=== PATIENT | male | born 1950 | race Caucasian/White ===

== ENCOUNTER → 2018-12-11 | Outpatient (CLI) | payer MEDICARE, BC ==
--- NOTE | 2018-12-11 10:15 | XR ---
EXAMINATION TYPE: XR ribs RT w pa chest xray DATE OF EXAM: 12/11/2018 CLINICAL HISTORY: Right rib pain TECHNIQUE: Single frontal view of the chest is obtained. 2 views of the right ribs were also obtained . COMPARISON: None FINDINGS: Right hemidiaphragm elevation is seen without priors for comparison to establish stability. There is no focal air space opacity, pleural effusion, or pneumothorax seen. The cardiac silhouette size is within normal limits. The osseous structures are intact. Mild multilevel degenerative arroyo ges of the thoracic spine are noted. IMPRESSION: 1. No acute cardiopulmonary process. 2. No acute right rib fracture or displaced healed fracture deformity. 3. Right hemidiaphragm elevation. No priors are available for comparison and therefore sniff test cou ld be performed to evaluate for diaphragmatic paralysis.
== END | disposition home or self-care (01) ==
LOC: RADXRMAIN 09:45
PROVIDERS: ATTEND Family Medicine
DX: J98.6 Disorders of diaphragm (principal); R07.81 Pleurodynia

== ENCOUNTER → 2019-03-16 | Outpatient (CLI) | payer MEDICARE ==
--- NOTE | 2019-03-16 14:56 | XR ---
EXAMINATION TYPE: XR cervical spine comp DATE OF EXAM: 03/16/2019 TECHNIQUE: Frontal, lateral, oblique, and open mouth view of the cervical spine are obtained. HISTORY: CERVICAL STENOSIS neck pain and numbness down both arms. COMPARISON: None FINDINGS: The cervical spine is visualized in its entirety from C1 thru the bottom of T1 level, it i s straightened in alignment. There is grade 1 retrolisthesis of C5 on C6. There is moderate to severe narrowing and moderate anterior spurring C5-C6 level. There is moderate disc space narrowing and mod erate to severe anterior spurring C6-C7 level. The pre-vertebral soft tissue appears within normal li mits. The C1-C2 articulation is within normal limits on the open mouth view. The oblique images are within normal limits. Overlying clothing material is seen. IMPRESSION: As above.
== END | disposition home or self-care (01) ==
LOC: RADXRMAIN 12:47
PROVIDERS: ATTEND Family Medicine
DX: M48.02 Spinal stenosis, cervical region (principal); M43.12 Spondylolisthesis, cervical region
CPT/HCPCS: 72050

== ENCOUNTER 2019-11-04 09:44 | Day surgery (SDC) | payer MEDICARE ==
[~2019-11-04 09:44] MED LIST: ALPRAZolam 0.25 MG TAB PO PRN; ALPRAZolam 0.5 MG TAB PO PRN; ASPIRIN 325 MG TAB PO STA; NITROGLYCERIN SL TABS 0.4 MG TAB SUBLINGUAL PRN
[2019-11-04] MEDS ORDERED: LIDOCAINE 1% INJ 10MG/ML (20 ML MDV) ONE (10:19)
[2019-11-04] MEDS: SODIUM CHLORIDE 0.9% 1,000 ML in EMPTY BAG 1 BAG IV ONE ×2 (10:19→14:43)
[2019-11-04 10:20] LABS: Glucose,Whole Blood 241 mg/dL (75-99)
[2019-11-04] MEDS ORDERED: fentaNYL (PF) 50 MCG/ML 2 ML AMP ONE (10:20)
[2019-11-04] MEDS ORDERED: VERAPAMIL 2.5 MG/ML 2 ML AMP ONE (10:20)
[2019-11-04] MEDS: INSULIN ASPART (NovoLOG) 100 UNIT/ML VIAL SQ SCH ×4 (10:25→20:32)
[2019-11-04] MEDS ORDERED: HEPARIN SODIUM 1,000 UN/ML (10ML VL) ONE (10:44)
[2019-11-04 10:45] LABS: Basophils # (A) 0.1 k/uL (0-0.2); Basophils % (A) 1 %; Eosinophils # (A) 0.2 k/uL (0-0.7); Eosinophils % (A) 3 %; HCT 44.3 % (39.0-53.0); HGB 14.8 gm/dL (13.0-17.5); Lymphocytes # (A) 2.2 k/uL (1.0-4.8); Lymphocytes % (A) 30 %; MCH 28.4 pg (25.0-35.0); MCHC 33.3 g/dL (31.0-37.0); MCV 85.3 fL (80.0-100.0); Mean Platelet Volume 7.6; Monocytes # (A) 0.5 k/uL (0-1.0); Monocytes % (A) 7 %; Neutrophils # (A) 4.2 k/uL (1.3-7.7); Neutrophils % (A) 57 %; Platelet Count 236 k/uL (150-450); RDW 13.2 % (11.5-15.5); WBC 7.4 k/uL (3.8-10.6)
[2019-11-04] MEDS ORDERED: fentaNYL (PF) 50 MCG/ML 2 ML AMP IV ONE (10:45)
[2019-11-04] MEDS ORDERED: LIDOCAINE 1% INJ 10MG/ML (20 ML MDV) SQ ONE (10:48)
[2019-11-04] MEDS ORDERED: VERAPAMIL SYRINGE (5 MG/10 ML) INTRAARTER ONE (10:50)
[2019-11-04 10:53] LABS: African American GFR (CKD) >90 (>60 ml/min/1.73 sqM); Anion Gap 10 mmol/L; Blood Urea Nitrogen 19 mg/dL (9-20); Calcium 9.4 mg/dL (8.4-10.2); Carbon Dioxide 22 mmol/L (22-30); Chloride 101 mmol/L (98-107); Glucose 245 mg/dL (74-99); Non-African American GFR(CKD) >90 (>60 ml/min/1.73 sqM); Potassium 4.6 mmol/L (3.5-5.1); Sodium 133 mmol/L (137-145)
[2019-11-04] MEDS ORDERED: PRASUGREL 10 MG TAB ONE (11:02)
[2019-11-04] MEDS ORDERED: BIVALIRUDIN BOLUS 250 MG/50 ML IV ONE (11:04)
[2019-11-04] MEDS ORDERED: PRASUGREL 10 MG TAB PO ONE (11:06)
[2019-11-04] MEDS ORDERED: BIVALIRUDIN 250 MG in SODIUM CHLORIDE 0.9% 35 ML IV ONE (11:07)
[2019-11-04] MEDS ORDERED: NITROGLYCERIN 1000MCG/10ML SYRINGE INTRACORON ONE (11:09)
[2019-11-04] MEDS ORDERED: IOPAMIDOL-370 125ML BTL INJ ONE (11:10)
[2019-11-04 11:20] LABS: ALT 46 U/L (4-49); AST 58 U/L (17-59); Albumin 4.4 g/dL (3.5-5.0); Alkaline Phosphatase 53 U/L (38-126); Cholesterol 177 mg/dL (<200); HDL Cholesterol 55 mg/dL (40-60); LDL Cholesterol,Calculated 75 mg/dL (0-99); Total Bilirubin 0.9 mg/dL (0.2-1.3); Total Protein 7.4 g/dL (6.3-8.2); Triglycerides 235 mg/dL (<150)
[2019-11-04] MEDS ORDERED: IOPAMIDOL-370 100ML BTL INJ ONE ×3 (11:33→12:36)
[2019-11-04] MEDS ORDERED: BIVALIRUDIN 250 MG in SODIUM CHLORIDE 0.9% 50 ML IV ONE (11:56)
[2019-11-04 11:58] LABS: Creatine Kinase 62 U/L (55-170)
[2019-11-04 12:09] LABS: Creatine Kinase MB 0.9 ng/mL (0.0-2.4); Troponin I <0.012 ng/mL (0.000-0.034)
[2019-11-04] MEDS ORDERED: ZOLPIDEM 5 MG TAB PO PRN (12:52)
[2019-11-04] MEDS ORDERED: MAG HYDROX/AL HYDROX/SIMETH 30 ML CUP PO PRN (12:52)
[2019-11-04] MEDS ORDERED: NITROGLYCERIN SL TABS 0.4 MG TAB SUBLINGUAL PRN (12:52)
[2019-11-04] MEDS ORDERED: ATROPINE SULFATE 0.1 MG/ML 10ML SYRINGE IV PRN (12:52)
[2019-11-04] MEDS ORDERED: RX INFO: IV CONTRAST WAS GIVEN 1 EACH MISC MISCELLANE PRN (12:52)
[2019-11-04 12:54] LABS: Glucose,Whole Blood 244 mg/dL (75-99)
[2019-11-04] MEDS ORDERED: SODIUM CHLORIDE 0.9% 1,000 ML IV SCH (13:00)
--- NOTE | 2019-11-04 14:56 | PTCA ---
PERCUTANEOUSTRANS CORORONARY ANGIOGRAPHY Mr. Plasencia is a 69-year-old male with a known history of hypertension, hyperlipidemia, diabetes mellitus, who has been complaining of new onset chest discomfort with exertion worsening. In view of that, he underwent cardiac catheterization, was found to have critical stenosis involving the LAD and the ramus intermedius. Recommendation made regarding angioplasty and stenting. The procedures, the risks, and complication were discussed with the patient, who is in full understanding and agreement. PROCEDURE: A 6-Sol[place] Islander EBU 3.75 guiding catheter introduced into the system, after cannulating the left main, a 0.014 balanced medium weight J-wire was advanced across the LAD lesion, positioned distally. Following that, a 2.5 x 15 mm Trek balloon was advanced and multiple inflations with maximum of 10 atmospheres were done. The balloon was removed and a 3.0 x 23 mm Xience Karla stent was deployed, postdilated at 16 atmospheres, following that the balloon was removed and a 3.5 x 15 mm NC Trek balloon was advanced and multiple inflation, maximum of 14 atmospheres were done. Following that, the balloon was removed. Images were obtained and repeated. Those images reveal stable successful stenting. At that point, the wire was withdrawn and advanced into the ramus intermedius. Subsequently, a 2.5 x 12 mm Trek balloon was advanced and one inflation was done at 8 atmospheres. Following that, the balloon was removed and a 2.5 x 15 mm Xience Karla stent was deployed, postdilated at 16 atmospheres. After the last inflation, after appropriate wait, the balloon and guidewire were withdrawn back in the guiding catheter. Images of the LAD were obtained and showed haziness in the distal segment of the stent. At that point, the BMW wire was reintroduced in the LAD, positioned distally and a 3.75 x 15 mm NC Trek balloon was advanced and multiple inflations were done, maximum of 12 atmospheres. After that, attempts to advance an intravascular ultrasound catheter were unsuccessful to advance into the LAD proximally. That catheter was removed and a 4.0 x 15 mm Xience Karla stent was advanced into the distal segment of the first stent and deployed and postdilated at 16 atmospheres. After removing the stent, a 3.5 x 12 mm Xience Karla stent was deployed distal to the first stent and post dilated at 16 atmospheres. Following that, at 4.0 x 8 mm NC Trek balloon was advanced and multiple inflation were done throughout the stented segment at a maximum of 12 atmospheres. Following that, the balloon was removed, attempt to advance the intravascular ultrasound catheter were unsuccessful proximally. At that point, the guiding catheter, the balloon and the guidewire were removed, images were obtained and repeated. Those images reveal stable successful stenting. At that point, the guiding catheter, the balloon and the guidewire were removed, the sheath was removed, hemostasis was obtained with deployment of a TR band. There was no immediate complication. Patient was returned to his room in stable condition. Of note, the patient had chest discomfort and EKG changes with the inflation that resolved at the end the procedure. He received Angiomax per protocol as well as oral loading dose of Effient. RESULTS: 1. Successful stenting of a long segment of the proximal LAD with reduction of stenosis from 99% to 0%. 2. Successful stenting of the ramus intermedius with reduction of stenosis from 90% to 0%. RECOMMENDATION: Patient will be continued on aspirin, Effient, beta robbie, DEE inhibitor, statin. The importance of dual antiplatelet treatment were discussed with the patient and he is in full understanding and agreement. Duration of procedure is 105 minutes. MMODL / IJN: [id number] /
--- NOTE | 2019-11-04 14:56 | LTR ---
DATE OF SERVICE: 11/04/2019 RE: Guzman Plasencia Dear Dr. Galindo; I had the pleasure to perform coronary angiography and angioplasty and stenting on Mr. Plasencia at [facility] on November 04, 2019 and a full copy of the procedure note will be forwarded to you. In brief, he was found to have a critical stenosis involving the proximal LAD as well as the proximal ramus intermedius. He underwent successful stenting of both vessels. I am hopeful that this procedure will stabilize his status and thank you again for allowing me to participate in this patient's care. Please feel free to call for any questions. Sincerely yours, Jeni Mcdaniels MD MMDENISSEL / JOSEN: [id number] /
[2019-11-04] MEDS: ACETAMINOPHEN TAB 325 MG TAB PO PRN ×2 (15:18→20:24)
--- NOTE | 2019-11-04 15:41 | CC ---
CARDIAC CATHETERIZATION REPORT Mr. Plasencia is a 69-year-old male with a known history of hypertension, hyperlipidemia, diabetes mellitus, who has been complaining of progressive exertional chest discomfort over the last few weeks. In view of that, recommendation made regarding cardiac catheterization. The procedures, risks, and complication were discussed with the patient who is in full understanding and agreement. PROCEDURE: Patient was brought to [facility] in a fasting semi-sedated state after receiving fentanyl and Benadryl and achieving moderate conscious sedated state. Using Xylocaine anesthesia and Seldinger technique, a 6-Thai sheath was introduced in the right radial artery. Selective right and left coronary angiography performed using 3.5 bend 5-Thai, right and left Dirk catheter, multiple views of the coronary artery including hemiaxial views were obtained. Following that, angioplasty and stenting was performed, following that 5-Thai tight pigtail catheter induced left ventricle and left ventricular end-diastolic pressure was calculated. Following that, catheter and sheath were removed. Hemostasis was obtained with deployment of TR band. There was no immediate complication. Patient was returned to his room in stable condition. Of note, the patient received intra-arterial verapamil. FINDINGS: FLUOROSCOPY: There was significant calcification involving the proximal LAD. LEFT MAIN: This is a large-sized vessel, trifurcating in the left circumflex, left anterior descending artery and ramus intermedius. Left main coronary artery has no evidence of high-grade stenosis. LEFT ANTERIOR DESCENDING ARTERY: This is a large-sized vessel, calcified proximally in the proximal segment at the takeoff of the first septal air hole driller. There is 99% lesion, beyond that the vessel has no high-grade stenosis. LEFT CIRCUMFLEX: This is a codominant vessel, giving rise to an obtuse marginal branch and distally bifurcating PDA. The left circumflex has no evidence of high-grade stenosis. RAMUS INTERMEDIUS: The ramus intermedius is a large-sized vessel reaching to the apical lateral wall. It has a 90% to 95% plaque very proximally. The rest of the vessel has no high-grade stenosis. RIGHT CORONARY ARTERY: This is a codominant vessel, moderate in caliber, giving rise to a PDA distally. The right coronary artery in mid segment has a 20% to 30% plaque. The rest of the vessel has no high-grade stenosis. LEFT VENTRICULOGRAM: Left ventricular was not performed. HEMODYNAMICS: There was no gradient across the aortic valve. The left ventricular end- diastolic pressure was 12-14 mmHg. CONCLUSION: 1. Calcified LAD. 2. Critical stenosis in the proximal LAD. 3. Critical stenosis in the proximal ramus intermedius. 4. Mild disease in the right coronary artery. RECOMMENDATION: In view of finding anatomy, I recommend proceeding with angioplasty and stenting of the LAD and ramus intermedius. The findings and recommendation were discussed with the patient and he was in full understanding and agreement. MMODL / IJN: [id number] /
[2019-11-04 16:46] LABS: Glucose,Whole Blood 281 mg/dL (75-99)
[2019-11-04 18:50] LABS: Hemoglobin A1C 10.3 % (4.0-6.0)
[2019-11-04] MEDS: METOPROLOL TARTRATE 50 MG TAB PO SCH (20:27)
[2019-11-04 20:30] LABS: Glucose,Whole Blood 183 mg/dL (75-99)
[2019-11-04] MEDS ORDERED: LORATADINE 10 MG TAB PO SCH (21:00)
[2019-11-05 03:16] VITALS: RESP 12
[2019-11-05 06:03] LABS: African American GFR (CKD) >90 (>60 ml/min/1.73 sqM); Anion Gap 6 mmol/L; Blood Urea Nitrogen 15 mg/dL (9-20); Calcium 9.1 mg/dL (8.4-10.2); Carbon Dioxide 26 mmol/L (22-30); Chloride 101 mmol/L (98-107); Glucose 189 mg/dL (74-99); Non-African American GFR(CKD) >90 (>60 ml/min/1.73 sqM); Potassium 4.4 mmol/L (3.5-5.1); Sodium 133 mmol/L (137-145)
[2019-11-05 06:20] LABS: Glucose,Whole Blood 195 mg/dL (75-99)
[2019-11-05] MEDS: INSULIN ASPART (NovoLOG) 100 UNIT/ML VIAL SQ SCH (06:29)
[2019-11-05] MEDS: METOPROLOL TARTRATE 50 MG TAB PO SCH (08:15)
[2019-11-05 08:21] VITALS: BP 131/71; PULSE 84; TEMP 97.7
[2019-11-05] MEDS ORDERED: ATORVASTATIN 80 MG TAB PO SCH (09:00)
[2019-11-05] MEDS ORDERED: ASPIRIN 81 MG PO SCH (09:00)
[2019-11-05] MEDS ORDERED: amLODIPine 5 MG TAB PO SCH (09:00)
[2019-11-05] MEDS ORDERED: LOSARTAN 50 MG TAB PO SCH (09:00)
[2019-11-05] MEDS ORDERED: ESCITALOPRAM 10 MG TAB PO SCH (09:00)
[2019-11-05] MEDS ORDERED: MULTIVITAMINS, THERA 1 EACH TAB PO SCH (09:00)
--- NOTE | 2019-11-05 09:30 | PN ---
PROGRESS NOTE Mr. Plasencia is a 69-year-old male with known history of hypertension, hyperlipidemia, and diabetes mellitus who presented with symptoms of new onset angina pectoris, underwent cardiac catheterization was found to have critical stenosis of the LAD and ramus intermedius. Underwent successful stenting of both vessels. He is doing well this morning, ambulating without difficulty, denying any chest pain. No dizziness. No palpitation. He continues to be on amlodipine 5 mg daily, aspirin once a day, Lipitor 80 mg daily, Lexapro 10 mg daily, insulin, losartan 150 mg daily, metoprolol tartrate 50 mg twice a day, Effient 10 mg daily. PHYSICAL EXAMINATION: Blood pressure 131/70 with a heart rate in the 80s. LUNGS: Clear. HEART: Regular rate and rhythm. S1, S2. No S3. No rub. ABDOMEN: Soft, nontender, positive bowel sounds. EXTREMITIES: No edema, right radial pulse intact. Impression 1 systolic EKG no acute changes. IMPRESSION: 1. New onset angina pectoris, status post stenting of the LAD and the ramus intermedius. 2. Hypertension. 3. Hyperlipidemia. 4. Diabetes mellitus. RECOMMENDATION: Patient will be discharged home today and followed as an outpatient. MMODL / IJN: [id number] /
[2019-11-05 11:07] VITALS: BMI 31.9
[2019-11-05] MEDS ORDERED: PRASUGREL 10 MG TAB PO SCH (12:00)
== END 2019-11-05 11:06 | disposition home or self-care (01) ==
LOC: CATHCVL 09:44 → 3SCARD 12:32 → CATHCVL 11-05 11:06
PROVIDERS: ATTEND Internal Medicine Interventional Cardiology
DX: I25.110 Atherosclerotic heart disease of native coronary artery with unstable angina pectoris (principal); I10 Essential (primary) hypertension; E78.5 Hyperlipidemia, unspecified; E78.00 Pure hypercholesterolemia, unspecified; E11.9 Type 2 diabetes mellitus without complications; M19.90 Unspecified osteoarthritis, unspecified site; Z87.891 Personal history of nicotine dependence; Z79.84 Long term (current) use of oral hypoglycemic drugs; Z79.82 Long term (current) use of aspirin; Z79.899 Other long term (current) drug therapy; Z88.5 Allergy status to narcotic agent; Z82.49 Family history of ischemic heart disease and other diseases of the circulatory system
CPT/HCPCS: 93458; 85347; 80061; 80053; 80048; 82550; 82553; 84484; 85025; 83036; 87635; C9600 ×2; C1769 ×3; C1887; C1725 ×6; C1753; C1874; C1894; J2001; J3010; J0583; Q9967 ×2

== ENCOUNTER → 2020-01-17 | Outpatient (CLI) | payer MEDICARE ==
[2020-01-17 18:25] LABS: African American GFR (CKD) 101.4 (60.0-200.0); Albumin 4.4 g/dL (3.80-4.90); Albumin/Globulin Ratio 2.1 (1.60-3.17); BUN/Creat Ratio 17.78 Ratio (12.00-20.00); Calcium 9.7 mg/dL (8.7-10.3); Chol/HDL Ratio 2.91; Globulin 2.1 g/dL (1.6-3.3); LDL Cholesterol,Calculated 59.8 mg/dL (0.0-131.0); Non-African American GFR(CKD) 87.5 (60.0-200.0); Potassium 4.3 mmol/L (3.5-5.5); Total Bilirubin 0.8 mg/dL (0.2-1.2); Total Protein 6.5 g/dL (6.2-8.2); VLDL Calculation 24.2 mg/dL (5.00-40.00)
== END | disposition home or self-care (01) ==
LOC: LABWHC1 09:10
PROVIDERS: ATTEND Nurse Practitioner Adult Health
DX: E78.2 Mixed hyperlipidemia (principal)
CPT/HCPCS: 36415; 80053; 80061

== ENCOUNTER → 2020-10-24 | Outpatient (CLI) | payer MEDICARE ==
--- NOTE | 2020-10-24 10:11 | US ---
EXAMINATION TYPE: US gallbladder DATE OF EXAM: 10/24/2020 COMPARISON: NONE CLINICAL HISTORY: GERD K21.9. Patient states he has a lot gas. EXAM MEASUREMENTS: Liver Length: 14.5 cm Gallbladder Wall: 0.2 cm CBD: 0.4 cm Right Kidney: 11.0 x 4.6 x 5.6 cm Pancreas: wnl Liver: Increased attenuation Gallbladder: echogenic focus adjacent to wall = 0.4 x 0.5 cm Evidence for sonographic Alves's sign: neg CBD: wnl Right Kidney: No hydronephrosis or masses seen Visualized liver is heterogeneously hyperechoic. Tiny 4 mm polyp marked by technologists and gallblad carlin. No shadowing mobile gallstones. No right-sided hydronephrosis. IMPRESSION: No shadowing mobile gallstones or ultrasound evidence for acute cholecystitis.
== END | disposition home or self-care (01) ==
LOC: RADUSWWP 07:26
PROVIDERS: ATTEND Family Medicine
DX: K21.9 Gastro-esophageal reflux disease without esophagitis (principal)
CPT/HCPCS: 76705

== ENCOUNTER 2021-01-02 | Day surgery (SDC) | payer MEDICARE | END 2021-01-02 09:14 | disposition home or self-care (01) | DX: Z12.11 Encounter for screening for malignant neoplasm of colon (principal); D12.4 Benign neoplasm of descending colon; K57.30 Diverticulosis of large intestine without perforation or abscess without bleeding; E11.9 Type 2 diabetes mellitus without complications; E78.5 Hyperlipidemia, unspecified; I10 Essential (primary) hypertension; K21.9 Gastro-esophageal reflux disease without esophagitis; Z79.82 Long term (current) use of aspirin; Z79.84 Long term (current) use of oral hypoglycemic drugs; Z79.899 Other long term (current) drug therapy; Z85.828 Personal history of other malignant neoplasm of skin; Z87.891 Personal history of nicotine dependence; Z88.5 Allergy status to narcotic agent | CPT/HCPCS: 45385; J2704 ==

== ENCOUNTER 2021-05-22 17:55 | Emergency (ER) | payer MEDICARE ==
[2021-05-22 18:46] VITALS: BP 156/94; PULSE 99; RESP 19
[2021-05-22] MEDS ORDERED: GELATIN SPONGE,ABSORB (SMALL) 1 EACH SPONGE TOPICAL STA (20:14)
[2021-05-22] MEDS ORDERED: LIDOCAINE 1% INJ 10MG/ML (20 ML MDV) SQ ONE (20:14)
[2021-05-22] MEDS ORDERED: DIPH,PERTUS(ACELL)TETVAC-LF 0.5 ML VIAL IM ONE (20:14)
--- NOTE | 2021-05-22 21:08 | XR ---
EXAMINATION TYPE: XR finger LT DATE OF EXAM: 05/22/2021 COMPARISON: NONE HISTORY: Laceration TECHNIQUE: 3 views FINDINGS: There is bandages obscuring the distal phalanx of the index finger. I see no fracture nor d islocation. There is no sign of a foreign body. IMPRESSION: No fracture seen. No foreign body seen.
--- NOTE | 2021-05-22 21:57 | ED ---
Wound/Laceration HPI - General Chief Complaint: Wound/Laceration Stated Complaint: L finger LAC Time Seen by Provider: 05/22/21 19:56 Source: patient, RN notes reviewed Mode of arrival: ambulatory Limitations: no limitations - History of Present Illness Initial Comments: Patient is a 70-year-old male that presents to the emergency department complaining of a right index finger laceration. He notes he was using his table saw when he acid mildly rest across and caught his right fingertip and the blade. Patient notes he is not up-to-date on his tetanus shot. Patient was otherwise well-appearing in no apparent distress or pain. Patient does take low-dose blood thinner similar to Plavix. He denied any other issues or complaints. He denied any chest pain shortness breath headache nausea vomiting diarrhea constipation fever fatigue chills. - Related Data Home Medications Medication Instructions Recorded Confirmed Aspirin [Adult Low Dose Aspirin EC] 81 mg PO DAILY 10/03/16 12/28/20 Metoprolol Tartrate [Lopressor] 50 mg PO BID 10/03/16 12/28/20 metFORMIN HCL [Glucophage] 1,000 mg PO BID 10/03/16 12/28/20 Multivit-Min/Folic/Vit K/Lycop 1 each PO DAILY 11/03/19 12/28/20 [Men's Multivitamin Tablet] amLODIPine BES/OLMESARTAN MED 1 each PO HS 11/03/19 12/28/20 [amLODIPine BES/OLMESARTAN MED 5-40 mg] Atorvastatin [Lipitor] 40 mg PO HS 12/01/20 12/28/20 Cetirizine HCl [Zyrtec] 10 mg PO DAILY 12/01/20 12/28/20 Glucos Sul 2Kcl/MSM/Chond/C/Mn 1 each PO BID 12/01/20 12/28/20 [Glucosamine Chondroitin Cap] glipiZIDE [Glucotrol] 5 mg PO AC-BRKFST 12/01/20 12/28/20 Omeprazole [PriLOSEC] 20 mg PO AC-BRKFST 12/28/20 12/28/20 Previous Rx's Medication Instructions Recorded Nitroglycerin Sl Tabs [Nitrostat] 0.4 mg SUBLINGUAL Q5M PRN tab 11/05/19 Prasugrel [Effient] 10 mg PO DAILY #90 tab 11/05/19 Cephalexin [Keflex] 500 mg PO Q6HR #40 cap 05/22/21 Allergies Allergy/AdvReac Type Severity Reaction Status Date / Time codeine AdvReac Nausea Verified 05/22/21 18:45 meperidine [From Demerol] AdvReac Nausea Verified 05/22/21 18:45 Review of Systems ROS Statement: Those systems with pertinent positive or pertinent negative responses have been documented in the HPI. ROS Other: All systems not noted in ROS Statement are negative. Past Medical History Past Medical History: Chest Pain / Angina, Diabetes Mellitus, GERD/Reflux, Hyperlipidemia, Hypertension Additional Past Medical History / Comment(s): Basal cell skin cancer. "Strained back the other day, doing okay." History of Any Multi-Drug Resistant Organisms: None Reported Past Surgical History: Back Surgery, Orthopedic Surgery Additional Past Surgical History / Comment(s): Right and Left shoulder surgery , right knee arthroscopic, left knee arthroscopic. Colonoscopies Past Anesthesia/Blood Transfusion Reactions: Postoperative Nausea & Vomiting (PONV) Date of Last Stent Placement:: october 2019 Past Psychological History: No Psychological Hx Reported Smoking Status: Former smoker - Past Family History Mother Family Medical History: No Reported History General Exam Limitations: no limitations General appearance: alert, in no apparent distress Head exam: Present: atraumatic, normocephalic, normal inspection Eye exam: Present: normal appearance, PERRL, EOMI. Absent: scleral icterus, conjunctival injection, periorbital swelling ENT exam: Present: normal exam, mucous membranes moist Neck exam: Present: normal inspection Respiratory exam: Present: normal lung sounds bilaterally. Absent: respiratory distress, wheezes, rales, rhonchi, stridor Cardiovascular Exam: Present: regular rate, normal rhythm, normal heart sounds. Absent: systolic murmur, diastolic murmur, rubs, gallop, clicks GI/Abdominal exam: Present: soft, normal bowel sounds. Absent: distended, tenderness, guarding, rebound, rigid Extremities exam: Present: normal inspection, full ROM, normal capillary refill. Absent: tenderness, pedal edema, joint swelling, calf tenderness Neurological exam: Present: alert, oriented X3 Psychiatric exam: Present: normal affect, normal mood Skin exam: Present: warm, dry, intact, normal color. Absent: rash Expanded Type of lesion: Present: laceration (Right index finger distal aspect through the nail. Measuring approximately 2 cm, margins well approximate.) Course Vital Signs 05/22/21 18:43 Pulse Rate 99 Respiratory 19 Rate Blood Pressure 156/94 O2 Sat by Pulse 97 Oximetry Procedures - Laceration Laceration #1 Consent Obtained: verbal consent Indication: laceration Site: hand (Tip of right index finger partial nail avulsion) Size (cm): 2 Description: linear Depth: simple, single layer Anesthesia Technique: nerve block Amount (mls): 8 Pre-repair: irrigated extensively Type of Sutures: nylon Size of Sutures: 5-0 Number of Sutures: 4 Technique: simple, interrupted Patient Tolerated Procedure: well, no complications Medical Decision Making - Medical Decision Making 70-year-old male with a right index finger laceration table saw. Tetanus shot him a lidocaine, x-ray of the right index finger ordered. Patient tolerated suturing well. X-ray shows no acute osseous abdomen. Patient is agreeable with discharge home with follow-up to a hand specialist. Antibiotics sent to pharmacy. case discussed with Dr. Petty - Radiology Data Radiology results: report reviewed, image reviewed X-ray right index finger. No fracture seen. No foreign body seen. Disposition Clinical Impression: Laceration Disposition: HOME SELF-CARE Condition: Stable Instructions (If sedation given, give patient instructions): Care For Your Stitches (ED), Laceration (ED) Additional Instructions: Please return to the Emergency Department if symptoms worsen or any other concerns. Follow-up with primary care 1-2 days. Take Tylenol and Motrin alternating every 3 hours for pain. Please return in 7-10 days to have sutures removed. Is patient prescribed a controlled substance at d/c from ED?: No Referrals: Jonathan Galindo DO [Primary Care Provider] - 1-2 days Balbina Mtz DO [Doctor of Osteopathic Medicine] - 1-2 days Time of Disposition: 21:57
== END 2021-05-22 22:26 | disposition home or self-care (01) ==
LOC: EC 17:55
DX: S61.210A Laceration without foreign body of right index finger without damage to nail, initial encounter (principal); E11.9 Type 2 diabetes mellitus without complications; I10 Essential (primary) hypertension; E78.5 Hyperlipidemia, unspecified; K21.9 Gastro-esophageal reflux disease without esophagitis; Z79.84 Long term (current) use of oral hypoglycemic drugs; Z79.82 Long term (current) use of aspirin; Z79.899 Other long term (current) drug therapy; Z88.5 Allergy status to narcotic agent; W27.0XXA Contact with workbench tool, initial encounter
CPT/HCPCS: 73140; 90715; 12001; 90471; 99283; J2001

== ENCOUNTER → 2021-07-25 | Outpatient (CLI) | payer MEDICARE ==
--- NOTE | 2021-07-26 04:59 | MR ---
EXAMINATION TYPE: MR knee LT wo con DATE OF EXAM: 07/25/2021 COMPARISON: None HISTORY: Left knee pain. Multiplanar multiecho imaging of the left knee without contrast. There is mild knee joint effusion. The anterior and posterior cruciate ligaments appear intact. There is thinning of the posterior horn medial meniscus with increased signal in the posterior aspect. The re is narrowing of the medial joint space. There is a vertical defect through the anterior horn of the lateral meniscus. The collateral ligaments appear intact. There is small areas of increased signal on both sides of the medial joint space consistent with mild bone bruise and degenerative cyst formation. There is no uzair dence of a fracture. IMPRESSION: There is large vertical tear through the anterior horn of the lateral meniscus. Knee joint effusion. Osteoarthritic narrowing of the medial joint space with spurring of the medial femoral and tibial con dyles. Mild subchondral edema on both sides of the medial joint space. There is significant degenerative thinning of the posterior horn of the medial meniscus. There is com plex tear posterior aspect of the posterior horn medial meniscus. There is a minute popliteal cyst me asuring 3 mm in thickness.
== END | disposition home or self-care (01) ==
LOC: RADMRIMAIN 19:52
PROVIDERS: ATTEND Orthopaedic Surgery
DX: M23.342 Other meniscus derangements, anterior horn of lateral meniscus, left knee (principal); M25.462 Effusion, left knee; M17.12 Unilateral primary osteoarthritis, left knee; M23.322 Other meniscus derangements, posterior horn of medial meniscus, left knee; M71.22 Synovial cyst of popliteal space [Baker], left knee

== ENCOUNTER → 2021-08-06 | Outpatient (CLI) | payer MEDICARE ==
[2021-08-06 19:06] LABS: Basophils # (A) 0.04 X 10*3/uL (0.00-0.10); Basophils % (A) 0.6 %; Eosinophils # (A) 0.26 X 10*3/uL (0.04-0.35); Eosinophils % (A) 3.7 %; HCT 44.8 % (39.6-50.0); HGB 14.8 g/dL (13.0-17.0); Immature Grans, Automated 0.6 %; Lymphocytes # (A) 2.14 X 10*3/uL (0.90-5.00); Lymphocytes % (A) 30.4 %; MCH 29.4 pg (27.0-32.0); MCV 88.9 fL (80.0-97.0); Mean Platelet Volume 10.4 fL (9.5-12.2); Monocytes # (A) 0.61 X 10*3/uL (0.20-1.00); Monocytes % (A) 8.7 %; NRBC Per 100 WBC 0 /100 WBCS (0.0-0.0); Neutrophils # (A) 3.96 X 10*3/uL (1.80-7.70); Platelet Count 239 X 10*3/uL (140-440); RBC 5.04 X 10*6/uL (4.40-5.60); RDW 12.4 % (11.5-14.5); WBC 7.05 X 10*3/uL (4.50-10.00)
[2021-08-06 19:14] LABS: Anion Gap 12.8 mmol/L (10.00-18.00); Carbon Dioxide 23.3 mmol/L (20.0-27.5); Potassium 4.7 mmol/L (3.5-5.5)
== END | disposition home or self-care (01) ==
LOC: LABPAT 10:18
PROVIDERS: ATTEND Orthopaedic Surgery
DX: Z01.812 Encounter for preprocedural laboratory examination (principal); M23.92 Unspecified internal derangement of left knee
CPT/HCPCS: 80051; 85025; 93005

== ENCOUNTER 2021-08-30 10:42 | Day surgery (SDC) | payer MEDICARE ==
--- NOTE | 2021-08-29 20:40 | HP ---
HISTORY AND PHYSICAL DATE OF SURGERY: 08/30/2021 Guzman Plasencia is a 71-year-old patient seen with progressive left knee pain. We discussed options for treatment. He elected to proceed with left knee arthroscopy. Consent regarding the procedure was obtained. Cardiac clearance was provided by Dr. Mcdaniels. PAST MEDICAL HISTORY: Hyperlipidemia, hypertension, cardiovascular disease, ibu-[id number]-[id number] diabetes. PAST SURGICAL HISTORY: Cardiac catheterization with stent insertion. DAILY MEDICATIONS: Amlodipine/benazepril, atorvastatin, metformin, metoprolol, omeprazole. ALLERGIES: NONE REPORTED. SOCIAL HISTORY: He denies tobacco use. PHYSICAL EVALUATION OF THE LEFT KNEE: His range of motion is zero to 130 degrees. Mild effusion. Tenderness along the medial joint line. Tenderness along the lateral joint line. Positive medial Kamila's. Positive lateral Kamila's. Ligaments stable. Hip rotation without pain. Distal neurovascular exam is intact. Radiographs of the left knee revealed moderate osteoarthritic changes. MRI left knee revealed medial and lateral meniscal tears as well as osteoarthritic changes. IMPRESSION: 1. Internal derangement of left knee with medial and lateral meniscal tears. 2. Hypertension. 3. Hyperlipidemia. 4. Dnb-qzwfzav-sdfvdxvtg diabetes. 5. Cardiovascular disease. PLAN: Left knee arthroscopy with partial medial and lateral meniscectomy along with debridement. MMODL / IJN: [id number] /
[~2021-08-30 10:42] MED LIST changes: -ALPRAZolam 0.25 MG TAB PO PRN; -ALPRAZolam 0.5 MG TAB PO PRN; -ASPIRIN 325 MG TAB PO STA; +DEXAMETHASONE SOD PHOSPHATE 4 MG/ML 1 ML VIAL IV ONE; +HYDROmorphone 0.5 MG/0.5 ML SYRINGE IVP PRN; +LACTATED RINGERS 1,000 ML IV SCH; +LIDOCAINE 1% (10MG/ML) FOR IV START INTRADERMA PRN; +MIDAZOLAM 2 MG/2 ML VIAL IV PRN; -NITROGLYCERIN SL TABS 0.4 MG TAB SUBLINGUAL PRN; +ONDANSETRON 4 MG/2 ML VIAL IVP ONE
[2021-08-30 11:18] VITALS: RESP 16
[2021-08-30 11:27] LABS: Glucose,Whole Blood 144 mg/dL (75-99)
[2021-08-30] MEDS ORDERED: fentaNYL (PF) 50 MCG/ML 2 ML AMP ONE (12:34)
[2021-08-30] MEDS ORDERED: KETOROLAC 15 MG/ML 1 ML VIAL ONE (12:34)
[2021-08-30] MEDS ORDERED: PHENYLEPHRINE-0.9% NACL SYG 1,000 MCG/10 ML SYRINGE ONE (12:34)
[2021-08-30] MEDS ORDERED: PROPOFOL 10 MG/ML 20 ML VIAL IV ONE (12:34)
[2021-08-30] MEDS ORDERED: SUCCINYLCHOLINE CHLORIDE 100 MG/5 ML SYR IV ONE (12:34)
[2021-08-30] MEDS ORDERED: MIDAZOLAM 2 MG/2 ML VIAL ONE (12:34)
[2021-08-30] MEDS ORDERED: BUPIVACAINE (PF) 0.25% 30 ML VIAL SQ ONE ×2 (12:37→13:02)
--- NOTE | 2021-08-30 13:17 | P.OP ---
Date of Procedure: 08/30/21 Preoperative Diagnosis: Internal derangement left knee Postoperative Diagnosis: 1. Tear medial and lateral meniscus left knee 2. 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 Reactive synovitis medial, lateral and suprapatellar compartments left knee Procedure(s) Performed: 1. Arthroscopic microfracture medial tibial plateau left knee 2. Arthroscopic partial medial and lateral meniscectomy left knee 3. Arthroscopic partial synovectomy medial, lateral and suprapatellar compartments left knee Anesthesia: SATISHA, local Surgeon: Rc Connor Estimated Blood Loss (ml): 7 Pathology: none sent Condition: stable Disposition: PACU Indications for Procedure: 71-year-old patient seen with progressive left knee pain. After treatment options were discussed, he elected to proceed with arthroscopy. Operative Findings: See description of procedure Description of Procedure: Patient was taken to the operative suite. Patient underwent a general anesthetic by the department of anesthesia. Patient was given preoperative antibiotics. The left lower extremity was placed in a well-padded arthroscopic leg maria. The left leg was prepped and draped in the normal sterile orthopedic fashion. A lateral parapatellar and suprapatellar incision was made. Trochars were inserted. Arthroscopy was initiated. Suprapatellar pouch revealed diffuse thick reactive synovitis. The patellofemoral joint appeared to articulate congruently. There was grade 1 chondromalacia of the patella with no tears. The scope was guided into the medial gutter. No loose bodies or plica were identified. The scope was then guided into the medial compartment. A medial parapatellar incision was made. Trocar inserted followed by probe. There was a radial tear posterior horn medial meniscus. There was evidence of the previous partial medial meniscectomy. There was an area of grade 4 chondromalacia along the medial aspect of the tibial plateau with an area of exposed bone measuring approximately 2 cm. There was some thick reactive synovitis anteriorly. I performed a partial medial meniscectomy getting down to stable meniscal tissue. I performed a partial synovectomy decompressing the thick reactive synovitis anteriorly. I now performed a microfracture to the medial tibial plateau penetrating the bone with resultant bleeding at the microfracture site. Scope and probe were then guided into the intercondylar notch. Cruciates were identified, probed and found to be stable. The scope and probe were then guided into lateral compartment. There was a complex tear anterior horn lateral meniscus. There was some thick reactive synovitis anteriorly as well. There were no specific chondromalacia changes. I performed a partial lateral meniscectomy getting down to stable meniscal tissue. I performed a partial synovectomy decompressing the reactive synovitis anteriorly. The residual meniscus was stable. There was good decompression of the synovitis. The scope was in guided back into the suprapatellar compartment. I introduced a motorized shaver into the suprapatellar compartment. I debrided some piecemeal fragments of meniscus I encountered. I performed a partial synovectomy. The shaver was now removed. There was good decompression of synovitis. I took one more look around the entire knee, no residual debris. Instruments were now removed from the joint. The joint was infiltrated with .25% Marcaine. Steri-Strips were applied to the portal sites. Sterile dressings were applied. The patient was placed into a NAE hose. No tourniquet was utilized. The patient was awakened, transferred to a bed and taken to recovery stable satisfactory condition.
[2021-08-30 13:24] VITALS: TEMP 96.8
[2021-08-30] MEDS ORDERED: traMADol 50 MG TAB ONE (14:20)
[2021-08-30] MEDS ORDERED: traMADol 50 MG TAB PO ONE (14:22)
[2021-08-30 14:42] VITALS: BP 135/76; PULSE 64
== END 2021-08-30 15:20 | disposition home or self-care (01) ==
LOC: OR 10:42
PROVIDERS: ATTEND Orthopaedic Surgery
DX: M23.92 Unspecified internal derangement of left knee (principal); S83.282A Other tear of lateral meniscus, current injury, left knee, initial encounter; S83.242A Other tear of medial meniscus, current injury, left knee, initial encounter; M94.262 Chondromalacia, left knee; M65.9 Synovitis and tenosynovitis, unspecified
CPT/HCPCS: 29880; 29876; J2250; J1100; J0690; J2405; J3010; J1885; J2370; J0330; J2704

== ENCOUNTER → 2022-02-26 | Outpatient (CLI) | payer MEDICARE ==
[2022-02-26 15:09] LABS: ALT 35 U/L (10-49); AST 28 U/L (14-35); African American GFR (CKD) 100.5 (60.0-200.0); Albumin 4.6 g/dL (3.8-4.9); Albumin/Globulin Ratio 1.86 (1.60-3.17); Alkaline Phosphatase 63 U/L (41-126); BUN/Creat Ratio 18.02 Ratio (12.00-20.00); Calcium 9.7 mg/dL (8.7-10.3); Chloride 101 mmol/L (96-109); Chol/HDL Ratio 2.87 Ratio; Globulin 2.5 g/dL (1.6-3.3); Glucose 145 mg/dL (70-110); LDL Cholesterol,Calculated 60.2 mg/dL (0.0-131.0); Non-African American GFR(CKD) 86.7 (60.0-200.0); Potassium 4.4 mmol/L (3.5-5.5); Sodium 136 mmol/L (135-145); Total Protein 7.1 g/dL (6.2-8.2)
== END | disposition home or self-care (01) ==
LOC: LABWHC1 09:52
PROVIDERS: ATTEND Internal Medicine Interventional Cardiology
DX: E78.2 Mixed hyperlipidemia (principal)
CPT/HCPCS: 36415; 80053; 80061

== ENCOUNTER → 2023-02-11 | Outpatient (CLI) | payer MEDICARE ==
--- NOTE | 2023-02-19 20:17 | MR ---
EXAMINATION TYPE: MR knee RT wo con DATE OF EXAM: 02/11/2023 COMPARISON: None HISTORY: Rt knee pain TECHNIQUE: Multiplanar, multisequence imaging of the right knee is performed without IV contrast. FINDINGS: The patellofemoral joint space and cartilage is normal without significant degeneration. There is juan manuel y mild narrowing of the articular cartilages in the lateral compartment indicating mild osteophytic c hange. There is marked osteoarthritic change in the medial compartment with thinning of the articular cartilage and medial displacement of the body of the medial meniscus which is markedly degenerated. The posterior horn of the medial meniscus is absent raising the question of postsurgical changes reg arding the meniscus. Clinical correlation is recommended. There are mild subchondral bony changes in the medial compartment involving the medial femoral condyle and to a lesser extent the medial tibial plateau. The lateral meniscus is intact. There is a mild strain of the medial collateral ligament. The lateral collateral ligament is intact. There is a complete tear of the anterior cruciate ligament and mild bone marrow edema in the interspi nous anterior tibial plateau. There is moderate joint effusion tiny Caceres's cyst. IMPRESSION: 1. Complete tear of the anterior cruciate ligament and edema in the mid anterior tibial plateau. 2. Marked degeneration of the medial compartment knee with displacement of the medial meniscus medial ly. Absence of the posterior horn of the medial meniscus as described above 3. Mild strain of the medial collateral ligament. 4. Moderate joint effusion and tiny Caceres's cyst.
== END | disposition home or self-care (01) ==
LOC: RADMRIMAIN 18:59
PROVIDERS: ATTEND Orthopaedic Surgery
DX: S83.511A Sprain of anterior cruciate ligament of right knee, initial encounter (principal); M17.11 Unilateral primary osteoarthritis, right knee; M71.21 Synovial cyst of popliteal space [Baker], right knee; M25.461 Effusion, right knee

== ENCOUNTER → 2023-02-20 | Outpatient (CLI) | payer MEDICARE ==
[2023-02-20 10:26] LABS: African American GFR (CKD) >90 (>60 ml/min/1.73 sqM); Blood Urea Nitrogen 17 mg/dL (9-20); Non-African American GFR(CKD) 89 (>60 ml/min/1.73 sqM)
--- NOTE | 2023-02-20 11:25 | CT ---
EXAMINATION TYPE: CT brain w con, CT orbits w con CT DLP: 1277.2 (accession [id number]), 1277 (accession [id number]) mGycm, Automated exposure control for dose reduction was used. DATE OF EXAM: 02/20/2023 11:13 AM COMPARISON: None. CLINICAL INDICATION:Male, 72 years old with history of H53.2 DIPLOPIA; PHH, diplopia TECHNIQUE: Axial CT images of the brain and orbits were obtained after the uneventful administration of 100 cc of Isovue-[address] intravenously. One or more CT dose reduction strategies were utilized during this examination. Coronal and sagittal reformats reviewed. FINDINGS: Extra-axial spaces: No abnormal extra-axial fluid collections. Ventricular system: Within normal limits Cerebral parenchyma: No acute intraparenchymal hemorrhage or mass effect. The rueda-white junction is well differentiated. No abnormal enhancement is seen after the administration of intravenous contras t. Cerebellum: Unremarkable. Mass effect: No evidence of midline shift. Intracranial vasculature: unremarkable Soft tissues: Normal. Calvarium/osseous structures: No depressed skull fracture. Slight nasal septal deviation to the right . Paranasal sinuses and mastoid air cells: The mastoid air cells are clear. Likely 1.0 cm partially vis ualized mucous retention cyst within the left maxilla sinus. Mild mucosal thickening of the posterior right ethmoid sinus. Orbits: The globes have a normal contour. Orbital khan appear intact. The orbital fat is unremarka ble. Extraocular muscles are within normal limits. IMPRESSION: 1. No acute intracranial process and no evidence to suggest intracranial mass. 2. No evidence of orbital irregularity or mass.
== END | disposition home or self-care (01) ==
LOC: RADCTMAIN 09:41
PROVIDERS: ATTEND Family Medicine
DX: H53.2 Diplopia (principal)
CPT/HCPCS: 82565; 84520; 70460; 70481; 36415; Q9967

== ENCOUNTER → 2023-02-25 | Outpatient (CLI) | payer MEDICARE ==
[2023-02-25 15:55] LABS: ALT 35 U/L (10-49); AST 27 U/L (14-35); Albumin 4.6 d/dL (3.8-4.9); Albumin/Globulin Ratio 2.09 Ratio (1.60-3.17); Alkaline Phosphatase 59 U/L (41-126); Blood Urea Nitrogen 18.9 mg/dL (9.0-27.0); Calcium 9.8 mg/dL (8.7-10.3); Carbon Dioxide 24.9 mmol/L (21.6-31.8); Chloride 102 mmol/L (96-109); Globulin 2.2 d/dL (1.6-3.3); Glucose 163 mg/dL (70-110); LDL Cholesterol,Calculated 61.5 mg/dL (0.0-131.0); Potassium 4.8 mmol/L (3.5-5.5); Sodium 138 mmol/L (135-145); Total Bilirubin 0.9 mg/dL (0.3-1.2); Total Protein 6.8 d/dL (6.2-8.2); VLDL Calculation 16.74 mg/dL (5.00-40.00)
[2023-02-25 16:06] LABS: Basophils # (A) 0.05 X 10*3/uL (0.00-0.10); Basophils % (A) 0.8 %; Eosinophils # (A) 0.25 X 10*3/uL (0.04-0.35); HGB 14.3 d/dL (13.0-17.0); Lymphocytes # (A) 1.92 X 10*3/uL (0.90-5.00); Lymphocytes % (A) 30.9 %; MCH 30.6 pg (27.0-32.0); MCV 89.7 FL (80.0-97.0); Mean Platelet Volume 10.3 FL (9.5-12.2); Monocytes # (A) 0.61 X 10*3/uL (0.20-1.00); Monocytes % (A) 9.8 %; NRBC Per 100 WBC 0 X 10*3/uL (0.00-0.01); Neutrophils # (A) 3.36 X 10*3/uL (1.80-7.70); Neutrophils % (A) 54.2 %; Platelet Count 237 X 10*3/uL (140-440); RBC 4.68 X 10*6/uL (4.40-5.60); RDW 12.6 % (11.5-14.5); WBC 6.21 X 10*3/uL (4.50-10.00)
== END | disposition home or self-care (01) ==
LOC: LABWHC1 10:44
PROVIDERS: ATTEND Nurse Practitioner Adult Health
DX: I10 Essential (primary) hypertension (principal); E78.2 Mixed hyperlipidemia; R94.31 Abnormal electrocardiogram [ECG] [EKG]
CPT/HCPCS: 36415; 80053; 80061; 85025; 93005

== ENCOUNTER → 2023-02-25 | Outpatient (CLI) | payer MEDICARE | END | disposition home or self-care (01) | LOC: LABPAT 10:38 | PROVIDERS: ATTEND Orthopaedic Surgery | DX: Z53.9 Procedure and treatment not carried out, unspecified reason (principal) ==

== ENCOUNTER → 2023-09-18 | Outpatient (CLI) | payer MEDICARE ==
[2023-09-18 11:40] LABS: ALT 44 U/L (10-49); AST 23 U/L (14-35); Chol/HDL Ratio 2.98 Ratio; LDL Cholesterol,Calculated 67.4 mg/dL (0.0-131.0)
== END | disposition home or self-care (01) ==
LOC: LABWHC1 07:17
PROVIDERS: ATTEND Internal Medicine Interventional Cardiology
DX: E78.2 Mixed hyperlipidemia (principal)
CPT/HCPCS: 36415; 80061; 84450; 84460

== ENCOUNTER → 2023-11-10 | Outpatient (CLI) | payer MEDICARE | END | disposition home or self-care (01) | LOC: LABPAT 13:32 | PROVIDERS: ATTEND Orthopaedic Surgery | DX: Z01.812 Encounter for preprocedural laboratory examination (principal); M17.12 Unilateral primary osteoarthritis, left knee; Z22.322 Carrier or suspected carrier of Methicillin resistant Staphylococcus aureus | CPT/HCPCS: 87070 ==

== ENCOUNTER 2023-11-17 05:45 | Day surgery (SDC) | payer MEDICARE ==
[2023-11-13 13:09] VITALS: BMI 31.7
[~2023-11-17 05:45] MED LIST changes: -DEXAMETHASONE SOD PHOSPHATE 4 MG/ML 1 ML VIAL IV ONE; -HYDROmorphone 0.5 MG/0.5 ML SYRINGE IVP PRN; -LACTATED RINGERS 1,000 ML IV SCH; -LIDOCAINE 1% (10MG/ML) FOR IV START INTRADERMA PRN; -MIDAZOLAM 2 MG/2 ML VIAL IV PRN; -ONDANSETRON 4 MG/2 ML VIAL IVP ONE; +TRANEXAMIC 1,000 MG/100ML-NACL 1,000 MG in SALINE 1 100ML.BAG IVPB PRN
[2023-11-17] MEDS: LACTATED RINGERS 1,000 ML IV SCH ×2 (06:24→15:01)
[2023-11-17] MEDS: ACETAMINOPHEN TAB 500 MG TAB PO PRN (06:33)
[2023-11-17] MEDS: MELOXICAM 7.5 MG TAB PO PRN (06:33)
[2023-11-17] MEDS ORDERED: MIDAZOLAM 2 MG/2 ML VIAL IV PRN (07:00)
[2023-11-17] MEDS: ONDANSETRON 4 MG/2 ML VIAL IVP ONE (07:00)
[2023-11-17] MEDS: DEXAMETHASONE SOD PHOSPHATE 4 MG/ML 1 ML VIAL IV ONE (07:00)
[2023-11-17 07:03] LABS: Glucose,Whole Blood 114 mg/dL (70-110)
[2023-11-17] MEDS ORDERED: LIDOCAINE 1% INJ 10MG/ML (20 ML MDV) ONE (07:41)
[2023-11-17] MEDS ORDERED: TRANEXAMIC 1,000 MG/100ML-NACL PREMIX BAG ONE (07:41)
[2023-11-17] MEDS ORDERED: KETAMINE HCL IN 0.9 % NACL 50 MG/5 ML SYRINGE ONE (07:41)
[2023-11-17] MEDS ORDERED: PHENYLEPHRINE-0.9% NACL SYG 1,000 MCG/10 ML SYRINGE ONE (07:41)
[2023-11-17] MEDS ORDERED: ROPIVACAINE 5 MG/ML 30 ML VIAL ONE (07:41)
[2023-11-17] MEDS ORDERED: DEXAMETHASONE SOD PHOSPHATE 4 MG/ML 1 ML VIAL ONE (07:41)
[2023-11-17] MEDS ORDERED: MIDAZOLAM 2 MG/2 ML VIAL ONE (07:41)
[2023-11-17] MEDS ORDERED: PROPOFOL 10 MG/ML 20 ML VIAL IV ONE (07:41)
[2023-11-17 07:48] LABS: INR 1.1 (<1.2); Prothrombin Time 11.4 sec (10.0-12.5)
[2023-11-17] MEDS: ceFAZolin 1,000 MG in SODIUM CHLORIDE 0.9% 1,000 ML IRRIGATION ONE (08:11)
[2023-11-17] MEDS: LACTATED RINGERS 1,000 ML IV ONE (08:55)
[2023-11-17] MEDS ORDERED: HYDROcodone/APAP 5-325MG 1 EACH TAB PO PRN (09:23)
[2023-11-17] MEDS ORDERED: NALOXONE 0.4 MG/ML 1 ML VIAL IV PRN (09:23)
[2023-11-17] MEDS ORDERED: HYDROmorphone 0.5 MG/0.5 ML SYRINGE IVP PRN ×2 (09:23)
[2023-11-17] MEDS ORDERED: ONDANSETRON 4 MG/2 ML VIAL IVP PRN (09:23)
--- NOTE | 2023-11-17 09:23 | P.OP ---
Date of Procedure: 11/17/23 Preoperative Diagnosis: Left knee osteoarthritis Postoperative Diagnosis: Left knee osteoarthritis Procedure(s) Performed: Left total knee arthroplasty Implants: 1. DePuy attune size 6 left cruciate retaining cemented femur 2. DePuy attune size 7 fixed-bearing cemented tibial baseplate 3. DePuy attune size 6 fixed-bearing cruciate retaining 7 mm polyethylene tibial insert 4. DePuy attune 38 mm all polyethylene cemented patella Anesthesia: regional (Adductor canal catheter, iPAQ block), spinal Surgeon: Rc Connor Acquisition Cost Estimator #1: Tung Kaiser Estimated Blood Loss (ml): 45 Pathology: none sent Condition: stable Disposition: PACU Indications for Procedure: 73-year-old patient seen with symptomatic left knee osteoarthritis. After treatment options were discussed, he elected to proceed with total knee arthrop lasty. Operative Findings: See description of procedure Description of Procedure: Patient was taken to the operative suite after having an adductor canal catheter placed by the department of anesthesia. Patient underwent a spinal anesthetic by the department of anesthesia. Patient was given preoperative IV intake antibiotics and TXA. A well-padded tourniquet was placed about the left lower extremity. The lower extremity was then prepped and draped in the normal sterile orthopedic fashion. The extremity was elevated, a tourniquet was insu fflated to 300. A standard anterior incision was made sharply through skin. Dissection was taken down through the subcutaneous soft tissues down to the extensor mechanism. A medial arthrotomy was performed, patella was everted and knee was flexed. There was advanced osteoarthritis noted. I introduced my distal intramedullary femoral drill. I then introduced the distal femoral cutting jig. Darrell VENTURA secured the cutting jig with 2 pins. I held retractors in position while Darrell VENTURA performed the distal femoral resection through the guide area we now removed her distal femoral cutting guide. We now placed our 4-in-1 femoral cutting block and positioned and it was secured with 2 pins by Darrell VENTURA while I held the block in position. The distal femoral finishing was now completed. A proximal tibial cutting guide was positioned. I held the guide in the appropriate position with both hands well Darrell VENTURA inserted stabilizing pins into the guide. Proximal tibial cut was made. We now placed a trial femoral component into position, along with an appropriate size tibial tray and insert. We now took the knee through range of motion and had full extension good flexion and good overall soft tissue balance noted. The patella was everted and stabilized with 2 towel clips held by Darrell VENTURA while I performed a flush with patellar quad tendon utilizing a fresh sawblade. We templated the patella, appropriate drill holes were made. An appropriate trial patella was positioned, knee was taken through full range of motion with the patella tracking very nicely. The trial patella was removed. Drill holes were made through the femoral component. All trial components were removed after marking off the appropriate rotation of the tibia. Retractors were now positioned along the proximal tibia. An appropriate keel punch was made with the appropriate size tibial guide by myself on Darrell VENTURA assisted by holding retractors. At this point appropriate size implants were chosen and opened. The joint was irrigated copiously with pulse lavage mechanical irrigation. The wound was irrigated with pulse lavage mechanical irrigation. We mixed antibiotic methylmethacrylate. We placed the knee into flexion. We placed multiple retractors assisted by Darrell VENTURA to expose the proximal tibia. Once the methyl methacrylate was ready, the tibial component was cemented into place removing any excess methylmethacrylate form by both myself and Darrell VENTURA. The femoral component was cemented into place removing the removing any excess methylmethacrylate performed by both myself and Darrell VENTURA. We then inserted the appropriate size polyethylene tibial insert. We made sure that it was locked into position. We took the knee into full extension, and then back in a flexion making sure we had removed any excess methylmethacrylate. The patellar component was then cemented down and secured with clamp. Excess methylmethacrylate removed. We kept the knee in full extension, patellar clamp in position until methylmethacrylate had hardened. Once it had hardened the patellar clamp was removed. The knee was taken through full range of motion. The patella tracked nicely. There was good soft tissue balancing. The tourniquet was now released. Additional hemostasis was achieved via electrocautery. A second gram of TXA was given. The wound again was irrigated with pulse lavage mechanical irrigation. The extensor mechanism was repaired with Ethibond suture. We checked the repair with range of motion and it was stable. The subcutaneous soft tissues were repaired with Vicryl in layers. The skin was approximated with pernio/Dermabond. Sterile dressings were applied followed by loose web roll and Ellis bandage. The patient was transferred to a bed, and taken to recovery in stable and satisfactory condition. Darrell VENTURA assisted with this complex procedure.
[2023-11-17] MEDS: fentaNYL (PF) 50 MCG/ML 2 ML AMP IV PRN (09:43)
[2023-11-17] MEDS: MEPERIDINE 50 MG/ML SYRINGE IVP ONE (10:29)
--- NOTE | 2023-11-17 10:44 | P.ANPRN ---
Procedure Note - Anesthesia - Nerve Block Performed Left Adductor Canal Infusion Time Out Performed: Yes Date of Procedure: 11/17/23 Procedure Start Time: 07:03 Procedure Stop Time: 07:10 Location of Patient: PreOp Indication: Acute Post-Operative Pain, Requested by Surgeon Sedation Type: Sedate with meaningful contact maintained Preparation: Sterile Prep, Sterile Dressing Position: Supine Catheter: Indwelling Needle Types: Pajunk Needle Gauge: 21 Ultrasound used to visualize needle placement: Yes Ultrasound used to observe medication spread: Yes Blood Aspirated: No Pain Paresthesia on Injection Noted: No Resistance on Injection: Normal Image Stored and Saved: Yes Events: Uneventful and Well Tolerated (Ropivacaine 0.5% 20 cc plus dexamethasone 4 mg)
--- NOTE | 2023-11-17 10:46 | P.ANPRN ---
Procedure Note - Anesthesia - Nerve Block Performed Left iPack Single Time Out Performed: Yes Date of Procedure: 11/17/23 Procedure Start Time: 07:11 Procedure Stop Time: 07:14 Location of Patient: PreOp Indication: Acute Post-Operative Pain, Requested by Surgeon Sedation Type: Sedate with meaningful contact maintained Preparation: Sterile Prep Position: Supine Needle Types: Pajunk Needle Gauge: 21 Ultrasound used to visualize needle placement: Yes Ultrasound used to observe medication spread: Yes Blood Aspirated: No Pain Paresthesia on Injection Noted: No Resistance on Injection: Normal Image Stored and Saved: Yes Events: Uneventful and Well Tolerated (Ropivacaine 0.5% 20 cc plus dexamethasone 4 mg)
[2023-11-17] MEDS: HYDROmorphone 0.5 MG/0.5 ML SYRINGE IVP ONE (10:56)
--- NOTE | 2023-11-17 11:01 | XR ---
EXAMINATION TYPE: XR knee limited LT DATE OF EXAM: 11/17/2023 10:57 AM CLINICAL INDICATION:Male, 73 years old with history of Evaluation for Postop abnormality and alignmen t; PHH COMPARISON: None. TECHNIQUE: XR knee limited LT; examined in Frontal, lateral projections. FINDINGS: Status post total knee arthroplasty changes with hardware in appropriate alignment and in tact. No evidence of fracture. Subcutaneous lucencies and lucencies within the joint consistent with surgical changes. IMPRESSION: Status post total knee arthroplasty changes with hardware intact and appropriate alignment. No fractu res identified. .
[2023-11-17] MEDS ORDERED: ROPIVACAINE 1,100 MG, SODIUM CHLORIDE 0.9% 500 ML 330 ML, EMPTY PAIN BALL 1 EACH MISCELLANE PRN (11:41)
[2023-11-17 12:15] LABS: Glucose,Whole Blood 224 mg/dL (70-110)
[2023-11-17] MEDS: INSULIN ASPART (NovoLOG) 100 UNIT/ML VIAL SQ ONE (12:42)
[2023-11-17] MEDS: HYDROcodone/APAP 7.5-325MG 1 EACH TAB PO PRN (15:29)
[2023-11-17] MEDS ORDERED: DEXTROSE 50% SYRINGE 50 ML IVP PRN ×2 (16:22)
[2023-11-17 17:10] LABS: Glucose,Whole Blood 186 mg/dL (70-110)
[2023-11-17] MEDS: INSULIN ASPART (NovoLOG) 100 UNIT/ML VIAL SQ SCH (17:11)
[2023-11-17 20:19] LABS: Glucose,Whole Blood 225 mg/dL (70-110)
[2023-11-17] MEDS: METOPROLOL TARTRATE 50 MG TAB PO SCH (20:25)
[2023-11-17] MEDS: ATORVASTATIN 40 MG TAB PO SCH (20:25)
[2023-11-17] MEDS: amLODIPine 10 MG TAB PO SCH (20:25)
[2023-11-17] MEDS: SENNOSIDES-DOCUSATE SODIUM 1 EACH TAB PO SCH (20:26)
[2023-11-17] MEDS: PANTOPRAZOLE 40 MG TABLET PO SCH (20:26)
[2023-11-17] MEDS: HYDROmorphone 0.5 MG/0.5 ML SYRINGE IVP PRN (21:46)
[2023-11-18 06:10] LABS: Glucose,Whole Blood 160 mg/dL (70-110)
[2023-11-18] MEDS: MIDAZOLAM 2 MG/2 ML VIAL IVP ONE (07:03)
[2023-11-18 08:35] LABS: Basophils # (A) 0.01 X 10*3/uL (0.00-0.10); Basophils % (A) 0.1 %; Eosinophils # (A) 0 X 10*3/uL (0.04-0.35); Eosinophils % (A) 0 %; HCT 36.2 % (39.6-50.0); HGB 12.6 g/dL (13.0-17.0); Lymphocytes # (A) 1.62 X 10*3/uL (0.90-5.00); Lymphocytes % (A) 12.9 %; MCH 29.9 pg (27.0-32.0); MCHC 34.8 g/dL (32.0-37.0); MCV 85.8 FL (80.0-97.0); Monocytes # (A) 1.37 X 10*3/uL (0.20-1.00); Monocytes % (A) 10.9 %; NRBC Per 100 WBC 0 X 10*3/uL (0.00-0.01); Neutrophils # (A) 9.49 X 10*3/uL (1.80-7.70); Neutrophils % (A) 75.6 %; Platelet Count 200 X 10*3/uL (140-440); RBC 4.22 X 10*6/uL (4.40-5.60); RDW 12.9 % (11.5-14.5); WBC 12.55 X 10*3/uL (4.50-10.00)
[2023-11-18] MEDS: ENOXAPARIN 30 MG/0.3 ML SYRINGE SQ SCH (08:41)
[2023-11-18] MEDS: VALSARTAN 160 MG TAB PO SCH (08:42)
[2023-11-18 08:47] VITALS: BP 170/78; PULSE 86; RESP 18; TEMP 98.5
--- NOTE | 2023-11-18 08:50 | P.PN ---
Progress Note - Text Progress Note Date: 11/18/23 patient was seen and evaluated at bedside. Status post postoperative day 1 for left total knee arthroplasty patient had adductor canal catheter for postop pain control. Patient rated pain at rest 4 out of 10 in severity. Patient describes pain is aching, throbbing type on the sides of the knee and back of the knee. Patient started walking with support. With activity patient pain levels are 6-7 out of 10 in severity. With the help of oral pain medications pain levels are tolerable. Patient denied any weakness/ numbness in lower extremities. patient denied any fever, pain over the catheter site. Physical exam: Patient vital signs stable Patient is alert awake oriented 3 responding to all questions appropriately Examination of the catheter site showed dressing intact, no leaking fluid around the catheter, no redness, no tenderness over the catheter insertion area. plan: status post postoperative day 1 for left total knee arthroplasty with adductor canal catheter for pain control. Patient was discussed to continue the medication at the rate of 8 mL per hour until the pump is completely empty and instructed the patient how to discontinue the catheter.
[2023-11-18 11:26] LABS: Glucose,Whole Blood 210 mg/dL (70-110)
[2023-11-18] MEDS: MULTIVITAMINS, THERA 1 EACH TAB PO SCH (11:48)
--- NOTE | 2023-11-18 13:16 | P.PN ---
Subjective Progress Note Date: 11/18/23 Principal diagnosis: Status post left total knee arthroplasty patient evaluated at bedside, he is resting comfortably, his is present. Patient did very well with physical therapy today. He is urinating with no issues. His pain is well-controlled. He denies headaches, lightheadedness, chest pain or shortness of breath Objective - Vital Signs Vital signs: Vital Signs Temp 98.5 F 11/18/23 07:18 Pulse 86 11/18/23 07:18 Resp 18 11/18/23 07:18 BP 170/78 11/18/23 07:18 Pulse Ox 93 L 11/18/23 07:18 FiO2 Intake & Output 11/17/23 11/18/23 11/18/23 18:59 06:59 18:59 Intake Total 1950 118 Output Total 45 Balance 1905 118 Weight 101.8 kg Intake: IV 1950 Oral 118 Output: Estimated Blood Loss 45 Other: # Voids 0 1 - Exam Left lower extremity: Incision is clean, dry, and intact. The foam dressing is in good condition. There is minimal soft tissue swelling and ecchymosis surrounding the medial and lateral aspects of the incision. Calf is soft, no tenderness with palpation. Plantar flexion, dorsiflexion, EHL, FHL are intact. Sensory exam to light touch throughout the extremity is intact, dorsal pedis pulses 2+. - Labs CBC & Chem 7: 11/18/23 05:12 Labs: Abnormal Lab Results - Last 24 Hours (Table) 11/17/23 11/17/23 11/18/23 Range/Units 17:08 20:16 05:12 WBC (4.50-10.00) X 10*3/uL RBC (4.40-5.60) X 10*6/uL Hgb (13.0-17.0) g/dL Hct (39.6-50.0) % Immature Gran # (0.00-0.04) X 10*3/uL Neutrophils # (1.80-7.70) X 10*3/uL Monocytes # (0.20-1.00) X 10*3/uL Eosinophils # (0.04-0.35) X 10*3/uL POC Glucose (mg/dL) 186 H 225 H (70-110) mg/dL Hemoglobin A1c 7.7 H (<=6.0) % 11/18/23 11/18/23 11/18/23 Range/Units 05:12 06:08 11:25 WBC 12.55 H (4.50-10.00) X 10*3/uL RBC 4.22 L (4.40-5.60) X 10*6/uL Hgb 12.6 L (13.0-17.0) g/dL Hct 36.2 L (39.6-50.0) % Immature Gran # 0.06 H (0.00-0.04) X 10*3/uL Neutrophils # 9.49 H (1.80-7.70) X 10*3/uL Monocytes # 1.37 H (0.20-1.00) X 10*3/uL Eosinophils # 0 L (0.04-0.35) X 10*3/uL POC Glucose (mg/dL) 160 H 210 H (70-110) mg/dL Hemoglobin A1c (<=6.0) % Assessment and Plan Assessment: postoperative day #1 status post left total knee arthroplasty Plan: pain control, plan for discharge home on Aniwa 7.5 mg / 325 mg. Will also uti lize stool softeners as needed DVT prophylaxis, aspirin 81 mg twice a day for 30 to wound care instructions discussed, this to include when to discontinue On-Q pain catheter, surgical dressing and showering instructions medical recommendations appreciated Home therapy and nursing after discharge discharge planning: Patient stable for discharge home today Time with Patient: Less than 30
--- NOTE | 2023-11-19 11:24 | P.HPOR ---
History of Present Illness H&P Date: 11/19/23 Chief Complaint: Left knee osteoarthritis Patient is a 73-year-old male who was scheduled for surgery on 11/17/[address] Connor for a left total knee arthroplasty. Patient has been a patient in our practice for many years. He has had previous left knee arthroscopy along with viscosupplementation injections for osteoarthritic symptoms. Patient is continue to be very symptomatic and conservative measures are not treating his symptoms. Patient normally ambulates independently. He does take Motrin and Tylenol along with aspirin for minimal relief. Patient had discussed with Dr. Connor further treatment options, he was scheduled for a elective left total knee arthroplasty. Review of Systems Constitutional: Reports as per HPI Past Medical History Past Medical History: Coronary Artery Disease (CAD), Cancer, Chest Pain / Angina, Diabetes Mellitus, GERD/Reflux, Hyperlipidemia, Hypertension, Osteoarthritis (OA) Additional Past Medical History / Comment(s): Basal cell skin cancer., pain left knee History of Any Multi-Drug Resistant Organisms: None Reported Past Surgical History: Back Surgery, Heart Catheterization With Stent, Orthopedic Surgery Additional Past Surgical History / Comment(s): Right and Left shoulder surgery , right knee arthroscopy, left knee arthroscopy., Colonoscopies, HEART CATH WITH 4 STENTS OCTOBER 2019. Past Anesthesia/Blood Transfusion Reactions: Postoperative Nausea & Vomiting (PONV) Additional Past Anesthesia/Blood Transfusion Reaction / Comment(s): no hx blood transfusion Date of Last Stent Placement:: October 2019 Past Psychological History: No Psychological Hx Reported Smoking Status: Former smoker Past Alcohol Use History: Rare Additional Past Alcohol Use History / Comment(s): started smoking at age 17, QUIT SMOKING 11/02/1991, SMOKED 1PPD Past Drug Use History: None Reported - Past Family History Mother Family Medical History: No Reported History Medications and Allergies Home Medications Medication Instructions Recorded Confirmed Type Aspirin [Adult Low Dose Aspirin EC] 81 mg PO DAILY 10/03/16 11/17/23 History Metoprolol Tartrate [Lopressor] 50 mg PO BID 10/03/16 11/17/23 History metFORMIN HCL [Glucophage] 1,000 mg PO BID 10/03/16 11/17/23 History Multivit-Min/Folic/Vit K/Lycop 1 each PO DAILY 11/03/19 11/17/23 History [Men's Multivitamin Tablet] Atorvastatin [Lipitor] 40 mg PO HS 12/01/20 11/17/23 History Omeprazole [PriLOSEC] 20 mg PO HS 12/28/20 11/17/23 History rOPINIRole HCL [Requip] 0.5 mg PO HS 08/23/21 11/17/23 History Valsartan 160 mg PO DAILY 03/20/23 11/17/23 History Acetaminophen Tab [Tylenol Tab] 1,000 mg PO Q6HR PRN 11/13/23 11/17/23 History amLODIPine 10 mg PO HS 11/13/23 11/17/23 History glipiZIDE XL [Glucotrol XL] 10 mg PO BID 11/13/23 11/17/23 History Aspirin [Adult Low Dose Aspirin EC] 81 mg PO BID #60 tab 11/18/23 Rx HYDROcodone/APAP 7.5-325MG [[place] 1 each PO Q4HR PRN #42 tab 11/18/23 Rx 7.5] Sennosides/Docusate Sodium 2 each PO DAILY PRN #30 tablet 11/18/23 Rx [Senna-S 8.6-50 mg Tablet] Allergies Allergy/AdvReac Type Severity Reaction Status Date / Time codeine AdvReac Nausea Verified 11/17/23 06:18 meperidine [From Demerol] AdvReac Nausea Verified 11/17/23 06:18 Physical Examination Left Lower extremity: No obvious open lesions or sores are visualized throughout the extremity, there is no areas of erythema or soft tissue swelling Patient has good range of motion both active and passive, he is full extension along with 125 degrees of flexion. Crepitance appreciated along the medial joint line and patellofemoral joint with range of motion. Patient demonstrates tenderness palpation along the medial joint line. He is nontender with palpation of the remaining extremity No significant varus or valgus laxity is felt on exam, he is stable to both anterior, posterior, medial and lateral force Painless hip range of motion is appreciated with hip flexion along with internal and external rotation Sensory exam to light touch is intact throughout the extremity Dorsalis pedis pulses 2+ Results - Labs Labs: Abnormal Lab Results - Last 24 Hours (Table) 11/18/23 Range/Units 11:25 POC Glucose (mg/dL) 210 H (70-110) mg/dL H & H 11/18/23 Range/Units 05:12 Hgb 12.6 L (13.0-17.0) g/dL Hct 36.2 L (39.6-50.0) % Coagulation 11/17/23 Range/Units 07:07 INR 1.1 (<1.2) Result Diagrams: 11/18/23 05:12 - Diagnostic results Knee x-ray: report reviewed, image reviewed ( x-rays were reviewed from 2023, these were don moderate to severe osteoarthritic changes including loss of the medial joint space and subchondral sclerosis e in the outpatient setting. They demonstrate) Assessment and Plan Assessment: Left knee osteoarthritis Plan: Patient was scheduled for a left total knee arthroplasty for 11/17/2023 Risk and benefits of the procedure were discussed with the patient, this to include but not exclude blood loss, neurovascular injury, development of blood clots, infection, and adequate resolution of symptoms, need for further surgery. Patient is in good understanding would like to proceed Patient did follow through with all preoperative testing and joint class Patient plans to stay at least 1 night in the hospital with hope for discharge to home with home health care Patient will be followed in the hospital by our orthopedic staff Patient will be scheduled for follow-up in the outpatient setting after his procedure Time with Patient: Less than 30
--- NOTE | 2023-11-19 11:25 | P.DS ---
Providers Date of admission: 11/17/2023 Expected date of discharge: 11/18/23 Attending physician: Rc Connor Consults: 11/17/23 09:23 Consult Physician Routine Consulting Provider: Jonathan Galindo Reason/Comments: Medical management Do you want consulting provider notified?: Yes Primary care physician: Jonathan Galindo Hospital Course: Date of admission: 11/17/2023 Date of discharge: 11/18/2023 Admission diagnosis: Status post left total knee arthroplasty Discharge diagnosis: Same Attending physician: Dr. Connor Surgical procedures: Left total knee arthroplasty Brief history: Patient is a 73-year-old male with a history of progressive primary left knee osteoarthritis. At this point patient has failed conservative treatment measures and has opted to proceed with a elective left total knee arthroplasty. Hospital course: Details of patient's surgery can be found in operative report. Patient tolerated the procedure well and was subsequently transported to orthopedic floor. Patient's orthopeidc and medical care was provided daily. Patient had daily laboratory tests performed for evaluation of overall blood counts. Patient had daily physical therapy to include strengthening range of motion as well as education with walker ambulation. Patient was treated with Lovenox for their postoperative DVT prophylaxis during their inpatient stay. Patient was noted to have a relatively uneventful postoperative course. Patient reported satisfactory pain control with oral pain medications by postoperative day 0. Patient showed satisfactory progress with physical therapy. Patient moved steadily through the program and had no difficulty meeting the goals by postoperative day 1. Given patient's otherwise satisfactory course and having met physical therapy goals, plan is to discharge patient home on postoperative day 1. Discharge condition/disposition: Patient will be discharged home in stable condition. Discharge medications: Instructions are given on resumption of patient's normal daily medications per primary care recommendation, in addition patient will be prescribed [place] 7.5 mg / 325 mg, senna S. Discharge instructions: 1. Wound care and infection precautions, keep incision dry and covered while showering, no lotions, creams, moisturizers. No soaking, tubs, pools, hottubs. Do not scrub over the incision. 2. Weight-bear as tolerated with walker / cane until follow-up. 3. Ice and elevate when necessary. Do not exceed 20 minutes per hour with ice pack. 4. Utilize compression sleeve until seen at first follow up appointment. 5. Visiting nursing care. 6. Home physical therapy including home CPM. 7. Pain meds and anticoagulants per prescription. 8. Pain medication has potential to cause constipation. Increase oral fluid and fiber intake. Contact primary care provider if you have not had a bowel movement within 48 hours after discharge 9. No anti-inflammatory medication until discussed at first post operative visit, this including Motrin, Aleve, Mobic, Diclofenac. 10. Follow up in office at 2 weeks postop with Darrell Kaiser PA-C/Reinaldo Angulo 11. Follow up with your primary care doctor 7-10 days after discharge. 12. Contact [facility] with any questions, . Procedures: Left total knee arthroplasty Patient Condition at Discharge: Good Plan - Discharge Summary Discharge Rx Participant: No New Discharge Prescriptions: New Aspirin [Adult Low Dose Aspirin EC] 81 mg PO BID #60 tab Sennosides/Docusate Sodium [Senna-S 8.6-50 mg Tablet] 2 each PO DAILY PRN #30 tablet PRN Reason: Constipation HYDROcodone/APAP 7.5-325MG [[place] 7.5] 1 each PO Q4HR PRN #42 tab PRN Reason: Pain No Action Metoprolol Tartrate [Lopressor] 50 mg PO BID metFORMIN HCL [Glucophage] 1,000 mg PO BID Aspirin [Adult Low Dose Aspirin EC] 81 mg PO DAILY Multivit-Min/Folic/Vit K/Lycop [Men's Multivitamin Tablet] 1 each PO DAILY Omeprazole [PriLOSEC] 20 mg PO HS Valsartan 160 mg PO DAILY glipiZIDE XL [Glucotrol XL] 10 mg PO BID Atorvastatin [Lipitor] 40 mg PO HS rOPINIRole HCL [Requip] 0.5 mg PO HS amLODIPine 10 mg PO HS Acetaminophen Tab [Tylenol Tab] 1,000 mg PO Q6HR PRN PRN Reason: Pain Discharge Medication List Aspirin [Adult Low Dose Aspirin EC] 81 mg PO DAILY 10/03/16 [History] Metoprolol Tartrate [Lopressor] 50 mg PO BID 10/03/16 [History] metFORMIN HCL [Glucophage] 1,000 mg PO BID 10/03/16 [History] Multivit-Min/Folic/Vit K/Lycop [Men's Multivitamin Tablet] 1 each PO DAILY 11/03/19 [History] Atorvastatin [Lipitor] 40 mg PO HS 12/01/20 [History] Omeprazole [PriLOSEC] 20 mg PO HS 12/28/20 [History] rOPINIRole HCL [Requip] 0.5 mg PO HS 08/23/21 [History] Valsartan 160 mg PO DAILY 03/20/23 [History] Acetaminophen Tab [Tylenol Tab] 1,000 mg PO Q6HR PRN 11/13/23 [History] amLODIPine 10 mg PO HS 11/13/23 [History] glipiZIDE XL [Glucotrol XL] 10 mg PO BID 11/13/23 [History] Aspirin [Adult Low Dose Aspirin EC] 81 mg PO BID #60 tab 11/18/23 [Rx] HYDROcodone/APAP 7.5-325MG [[place] 7.5] 1 each PO Q4HR PRN #42 tab 11/18/23 [Rx] Sennosides/Docusate Sodium [Senna-S 8.6-50 mg Tablet] 2 each PO DAILY PRN #30 tablet 11/18/23 [Rx] Follow up Appointment(s)/Referral(s): Jonathan Galindo DO [Primary Care Provider] - 12/09/23 8:30 am [facility],Equipment [NON-STAFF] - As Needed (*Please call [facility] once home to arrange delivery of the Continuous Passive Motion (CPM) machine. ) Tung Kaiser, PAC [PHYSICIAN FITTING ROOM SUPERVISOR] - 12/02/23 10:00 am [facility], [NON-STAFF] - 1-2 Days ([facility] will call you to schedule your in home nursing and physical therapy visits.) Patient Instructions/Handouts: Knee Replacement (DC), Knee Replacement (GEN) Activity/Diet/Wound Care/Special Instructions: Orthopedic Discharge Instructions: 1. Wound care and infection precautions, keep incision dry and covered while showering, no lotions, creams, moisturizers. No soaking, pools, hot tubs. Do not scrub over incision. 2. Weight-bear as tolerated with walker / cane until follow-up. 3. Ice and elevate when necessary. Do not exceed 20 minutes per hour with ice pack. 4. Utilize compression sleeve until seen at first follow up appointment. 5. Pain meds and anticoagulants per prescription. 6. Pain medication has potential to cause constipation. Increase oral fluid and fiber intake. Contact primary care provider if you have not had a bowel movement within 48 hours after discharge. 7. No anti-inflammatory medication until discussed at first post operative visit, this including Motrin, Aleve, Mobic, Diclofenac. 8. Follow up in office at 2 weeks postop with Darrell Kaiser PA-C / Reinaldo Baltazar PA-C 9. Follow up with your primary care doctor 7-10 days after discharge. 10. Contact [facility] with any questions, . Keep incision clean, dry, intact. While showering, cover dressing with Saran wrap. Keep dressing on until 11/24/2023. It is okay to take silver foam dres sing off on 11/24/2023. Once dressing is removed, it is okay to shower directly over incision Discharge Disposition: HOME WITH HOME HEALTH SERVICES
== END 2023-11-18 15:12 | disposition home health service (06) ==
LOC: OR 05:45 → 4SSUR 09:29 → OR 11-18 15:12
PROVIDERS: ATTEND Orthopaedic Surgery
DX: M17.12 Unilateral primary osteoarthritis, left knee (principal); G89.18 Other acute postprocedural pain; I25.10 Atherosclerotic heart disease of native coronary artery without angina pectoris; I10 Essential (primary) hypertension; E11.9 Type 2 diabetes mellitus without complications; E78.5 Hyperlipidemia, unspecified; F10.90 Alcohol use, unspecified, uncomplicated; Z79.82 Long term (current) use of aspirin; Z79.84 Long term (current) use of oral hypoglycemic drugs; Z79.899 Other long term (current) drug therapy; Z87.891 Personal history of nicotine dependence; Z88.5 Allergy status to narcotic agent; Z88.8 Allergy status to other drugs, medicaments and biological substances
CPT/HCPCS: 27447; 97161; 64999; 64448; 85025; 85610; 83036; 73560; C1776; C1713 ×2; C1751; J2250; J1100; J0690 ×2; J2405; J3010; J1650; J1170

== ENCOUNTER → 2024-03-15 | Outpatient (CLI) | payer MEDICARE ==
[2024-03-15 15:21] LABS: ALT 21 U/L (10-49); AST 19 U/L (14-35); Chol/HDL Ratio 2.65 Ratio; LDL Cholesterol,Calculated 71.7 mg/dL (0.0-131.0); VLDL Calculation 16.12 mg/dL (5.00-40.00)
== END | disposition home or self-care (01) ==
LOC: LABWHC1 09:09
PROVIDERS: ATTEND Internal Medicine Interventional Cardiology
DX: E78.2 Mixed hyperlipidemia (principal)
CPT/HCPCS: 36415; 80061; 84450; 84460

== ENCOUNTER → 2024-10-07 | Outpatient (CLI) | payer MEDICARE ==
[2024-10-07 15:30] LABS: BUN/Creat Ratio 16.67 Ratio (12.00-20.00); Carbon Dioxide 22.7 mmol/L (21.6-31.8); Chloride 101 mmol/L (96-109); Chol/HDL Ratio 3.12 Ratio; Glucose 183 mg/dL (70-110); LDL Cholesterol,Calculated 66.4 mg/dL (0.0-131.0); Potassium 4.6 mmol/L (3.5-5.5); Sodium 139 mmol/L (135-145)
[2024-10-07 15:31] LABS: ALT 39 U/L (10-49); AST 29 U/L (14-35); Albumin 4.4 g/dL (3.8-4.9); Albumin/Globulin Ratio 1.83 Ratio (1.60-3.17); Alkaline Phosphatase 69 U/L (41-126); Calcium 9.8 mg/dL (8.7-10.3); Globulin 2.4 g/dL (1.6-3.3); Total Bilirubin 0.6 mg/dL (0.3-1.2); Total Protein 6.8 g/dL (6.2-8.2)
== END | disposition home or self-care (01) ==
LOC: LABWHC1 08:00
PROVIDERS: ATTEND Internal Medicine Interventional Cardiology
DX: I10 Essential (primary) hypertension (principal); E78.2 Mixed hyperlipidemia
CPT/HCPCS: 36415; 80053; 80061